=== PATIENT | female | born 1995 | race Two or more races ===

== ENCOUNTER → 2019-04-04 08:53 | Outpatient (CLI) | payer MEDICAID, SELFPAY ==
--- NOTE | ~2019-04-04 | US_ITS ---
EXAMINATION: US OB >= 14 weeks Fetus DATE: 04/04/2019 09:48 INDICATION: Assess anatomy during early second trimester of TECHNIQUE: Multiple obstetric sonographic images performed. FINDINGS: There is a single living fetus in variable presentation. The placenta is posterior with caudal anirudh n 4.0 cm from the internal cervical os. Amniotic fluid volume is subjectively normal. heart ra te of 147 beats per minute. The following anatomy was identified as normal: Ventricles, choroid plexus, falx and cava septum pellucidum Cerebellum and cisterna magna Nuchal fold Upper lip Spine The four-chamber and three-vessel trachea views of the heart appears normal. The left and right ventr icular outflow tract views are suboptimal likely due to stage of development slightly prior to the op timal imaging range of 18-20 week gestation. Diaphragm Stomach Kidneys Bladder 3 vessel cord and cord insertion Bilateral upper and lower extremities including hands and feet The following biometric data were obtained: BPD: 3.9 cm -> 17 weeks 6 days Head circumference: 14.4 cm -> 17 weeks 4 days Abdominal circumference: 11.9 cm -> 17 weeks 4 days Femur length: 2.4 cm -> 17 weeks 1 days These measurements are concordant. Head circumference to abdominal circumference ratio: 1.21 (normal range 1.08-1.28). Estimated weight: 195 g (+/-) 29 g. or 7 oz. (+/-) 1 oz. IMPRESSION: 1. Single living fetus with variable presentation with heart rate of 147 bpm. 2. Gestational age by ultrasound of 17 weeks 4 day(s) (+/-) 1 week 2 day(s) with ultrasound estimat ed date of delivery (CARIDAD) of 09/08/2019. Estimated weight is 22nd percentile by Hadlock criteria when 09/06/2019 is used as the CARIDAD. Please correlate with clinical information or earlier ultrasounds for most accurate CARIDAD. 3. Normal survey aside from suboptimal right and left ventricular outflow tract images likely d ue to imaging prior to the optimal gestational age range of 18-20 weeks. Reviewed, dictated and finalized at location A. [facility] IMPRESSION: 1. Single living fetus with variable presentation with heart rate of 147 bpm. 2. Gestational age by ultrasound of 17 weeks 4 day(s) (+/-) 1 week 2 day(s) w ith ultrasound estimated date of delivery (CARIDAD) of 09/08/2019. Estimated w eight is 22nd percentile by Hadlock criteria when 09/06/2019 is used as the CARIDAD. Please correlate with clinical information or earlier ultrasounds for most acc urate CARIDAD. 3. Normal survey aside from suboptimal right and left ventricular outflow tract images likely due to imaging prior to the optimal gestational age range of 18-20 weeks.
== END ==
PROVIDERS: PCP Obstetrics & Gynecology; Visit Provider Obstetrics & Gynecology
DX: Z34.02 Encounter for supervision of normal first pregnancy, second trimester (principal); Z3A.00 Weeks of gestation of pregnancy not specified
CPT/HCPCS: 99199; 76805

== ENCOUNTER 2019-05-11 09:48 | Outpatient (CLI) | payer OTHER, SELFPAY ==
--- NOTE | ~2019-05-11 | US_ITS ---
OB follow up 05/11/2019 10:32 Indication: Evaluate ventricular outflow tracts. Incomplete previous survey. Procedure: High-resolution Limited obstetrical ultrasound Comparison: No 04/04/2019 Findings: There is a single living intrauterine in transverse presentation. heart rat e is 148 BPM. Placenta is posterior without previa. Three-vessel cord as well as four-chamber heart, right ventricular and left ventricular outflow tracts are visualized and are within normal limits. Impression: 1: Single living intrauterine in transverse presentation. 2: Normal limited survey of three-vessel cord and the heart including ventricular outflow tracts. Reviewed, dictated and finalized at location A. TURNER Impression: 1: Single living intrauterine in transverse presentation. 2: Normal limited survey of three-vessel cord and the heart including ventricul ar outflow tracts.
== END 2019-05-11 09:49 | disposition home or self-care (01) ==
LOC: ANHIMG 09:56
PROVIDERS: Visit Provider Obstetrics & Gynecology
DX: Z36.2 Encounter for other antenatal screening follow-up (principal)
CPT/HCPCS: 76816

== ENCOUNTER 2019-09-11 01:55 | Inpatient (IN) | payer OTHER, SELFPAY ==
[2019-09-11] VITALS (80 sets, daily range): BP systolic 96–130; BP diastolic 31–106; PULSE 60–198; RESP 16; TEMP 36.5–36.9; O2SAT 99–100; BMI 26.9
[2019-09-11 03:39] LABS: Basophils Absolute Auto 0.1 K/mm3 (0.0-0.1); Basophils Percent Auto 0.4 % (0.2-1.2); Eosinophils Absolute Auto 0.1 K/mm3 (0-0.3); Eosinophils Percent Auto 0.5 % (0-4.4); Hematocrit 42.2 % (37.0-47.0); Hemoglobin 14.5 g/dL (12.0-15.0); Immature Granulocyte Absolute 0.13 K/mm3 (0.00-0.031); Immature Granulocyte Percent A 1.1 % (0-0.5); Lymphocytes Absolute Auto 2.86 K/mm3 (0.9-3.2); Lymphocytes Percent Auto 23.3 % (18.3-44.2); Mean Corpuscular HGB Conc 34.4 g/dl (32-36); Mean Corpuscular Volume 90.2 fl (80-100); Mean Platelet Volume 11.9 fl (7.4-10.4); Monocytes Absolute Auto 0.7 K/mm3 (0.1-0.6); Monocytes Percent Auto 5.9 % (2.6-8.5); Neutrophils Absolute Auto 8.4 K/mm3 (1.3-6.7); Neutrophils Percent Auto 68.8 % (45.5-73.1); Platelet Count Result 168 k/mm3 (150-375); Red Blood Count 4.68 M/mm3 (4.2-5.4); Red Cell Distribution Width 13.6 % (11.5-14.5); White Blood Count 12.3 K/mm3 (4.5-10.0)
[2019-09-11] MEDS: LACTATED RINGERS 1,000 ML 125 ML IV CONT (03:43)
--- NOTE | 2019-09-11 03:43 | LDADM ---
This patient, Andriy Ayala, was admitted to Labor/Delivery/Recovery 108 on 09/11/19 at 01:55. Plans for labor, pain management and were discussed with patient. Patient/family oriented to hospital policies and general routines including ID bracelet, bed and alarms, visiting hours, pain management, procedures, bathroom and other care routines, personal items, smoking policy, room service/diet and guest tray routines, security routines, and visiting hours. Patient/Family are encouraged to report perceived risks to care and to ask questions if they do not understand what they are told or what they should do. See OBIX for further documentation.
--- NOTE | 2019-09-11 04:19 | P.PNAN_ITS ---
Anes - Initial Pre Proc Eval Procedure: labor epidural Date/Time: 09/11/19 04:19 Surgeon: Eric Graves MD Pre Op Diagnosis: labor pain Pre Op Diagnosis: Contractions Patient Data Age: 24 Gender: F Height: 1.7 m Weight: 78 kg Last Vital Signs Pulse 80 09/11/19 04:17 BP 118/74 09/11/19 04:17 Pulse Ox 100 09/11/19 04:16 Allergies Allergy/AdvReac Type Severity Reaction Status Date / Time No Known Allergies Allergy Verified 08/07/19 13:25 Home Medications Medication Instructions Recorded Confirmed Type PNV cmb#95-ferrous fumarate-FA 1 tablet PO DAILY 08/07/19 08/07/19 History [] ergocalciferol (vitamin D2) 1,250 mcg PO WEEKLY 08/07/19 08/07/19 History [Vitamin D2] Laboratory Tests 09/11/19 09/11/19 03:30 03:30 WBC 12.3 K/mm3 H K/mm3 (4.5-10.0) RBC 4.68 M/mm3 M/mm3 (4.2-5.4) Hgb 14.5 g/dL g/dL (12.0-15.0) Hct 42.2 % % (37.0-47.0) MCV 90.2 fl fl (80-100) MCH 31.0 pg pg (26-34) MCHC 34.4 g/dl g/dl (32-36) RDW 13.6 % % (11.5-14.5) Plt Count 168 k/mm3 k/mm3 (150-375) MPV 11.9 fl H fl (7.4-10.4) Immature Gran % (Auto) 1.1 % H % (0-0.5) Neut % (Auto) 68.8 % % (45.5-73.1) Lymph % (Auto) 23.3 % % (18.3-44.2) [place] % (Auto) 5.9 % % (2.6-8.5) Eos % (Auto) 0.5 % % (0-4.4) Baso % (Auto) 0.4 % % (0.2-1.2) Lymph # (Auto) 2.86 K/mm3 K/mm3 (0.9-3.2) [place] # (Auto) 0.7 K/mm3 H K/mm3 (0.1-0.6) Eos # (Auto) 0.1 K/mm3 K/mm3 (0-0.3) Baso # (Auto) 0.1 K/mm3 K/mm3 (0.0-0.1) Abs Immat Gran (auto) 0.13 K/mm3 H K/mm3 (0.00-0.031) Absolute Neuts (auto) 8.4 K/mm3 H K/mm3 (1.3-6.7) Absolute Nucleated RBC 0.0 K/mm3 K/mm3 (0.0-0.012) Nucleated RBC % 0.0 % % (0.0-0.2) RPR Pending Patient hx anesthesia problems: none Family hx anesthesia problems: none [facility] Family History Family History Other No pertinent family history Social History Social History Substance use: never Gender identity (if verbalized by the patient): Female Spiritual care concerns: No Anes - Eval Final PreProcedure Day of Procedure 09/11/19 04:19 Patient weight: normal Heart: regular rate and rhythm Lungs: clear to auscultation and normal air movement Airway: Mallampati scale Neurological: alert and oriented ASA classification: I Anesthetic plan: proceed Anesthesia type and monitoring: regional epidural and standard monitoring Informed Consent: The patient's anesthetic plan and its attendant risks and benefits were discussed with the patient/family/POA. Questions were solicited and answers provided to the satisfaction of the patient/family/PO
--- NOTE | 2019-09-11 06:22 | WPDOBADMIT ---
Obstetrics - Admit Note Admission Note: Called to bedside patient is complete and +1 station. arom and vertex. record reviewed. No pertinent additions to the history and/or any subsequent changes in the physical findings that are not consistent with the expected course of the were found. Additions to the history and/or subsequent changes in the physical findings follow. None.
[2019-09-11] MEDS: OXYTOCIN 30 UNITS/NS 500 ML 30 UNITS/500 ML BAG 6 UNITS IV CONT (06:30)
--- NOTE | 2019-09-11 07:56 | PM.OBPRVD ---
OB - Delivery Note Procedure Delivery date: 09/11/19 Procedure: events: Labor Augmentation Intrapartal events: None Induction method: none Delivery augmentation: rupture of membranes Delivery monitor: external FHT and external uterine Route of delivery: Laceration description: Perineal - 2nd Degree Delivery repair: vicryl Specimen: No Estimated blood loss (mL): 500 Anesthesia type: Epidural Disposition: floor Baby Date of : 09/11/19 Time of : 07:27 Weeks of gestation at delivery: 39 Infant gender: Male Weight (pounds): 7 Weight (ounces): 3 presentation: vertex position: Left Occiput Anterior Placenta delivery description: Spontaneous cord vessel description: 3 Vessels score one minute: 8 score five minutes: 9
[2019-09-11 09:14] LABS: Rapid Plasma Reagin Non-Reactive (NonReactive)
[2019-09-11] MEDS: BENZOCAINE 20% AER SPR (*SP) 56 GM CAN 1 SPRAY TOPICAL (10:07)
[2019-09-11] MEDS: DIBUCAINE 1% OINTMENT 30 GM TUBE 1 APPLIC TOPICAL (10:08)
[2019-09-11] MEDS: WITCH HAZEL 40 PADS 1 PAD TOPICAL (10:08)
--- NOTE | 2019-09-11 12:15 | PC.NURSE ---
Mother called out for assist. Consulted with patient, mother reports eagerly fed at first feeding. Reviewed infant feeding cues, frequencies, duration of feedings, feeding elimination flow sheet, and signs of adequate intake. Demonstrated stimulation techniques to wake for feeding. Assisted with to breast. Reviewed positioning/alignment in cross cradle, holding breast in U hold and guided asymmetrical latch on. Discussed rational for each. was able to latch correctly with first attempt. nursed eagerly, with steady draws and frequent swallowing noted. Reviewed signs of a correct latch, effective nursing and suck swallow ratio. Infant was able to maintain latch without discomfort to mother. Nipple care reviewed. Suggested to stimulate during feeding to keep infant awake and nursing effectively for increased intake and assist with maintaining deep latch. Demonstrated how to adjust latch more deeply while feeding. Instructed mother to call out for RN assistance if she is unable to latch infant for feeding or she has discomfort with nursing. Instructed feeding should be initiated three hours from start of last feeding or if feeding cues are noted before. Mother voiced understanding of information shared.
[2019-09-11] MEDS: IBUPROFEN 600 MG TABLET PO ×2 (12:38→19:35)
[2019-09-11] MEDS: HYDROCORTISONE/PRAMOXINE 2.5% 30 GM CREAM 1 APPLIC RECTAL (12:39)
[2019-09-11] MEDS: LANOLIN (LANSINOH) 7.5 GM CREAM 1 APPLIC TOPICAL (12:40)
--- NOTE | 2019-09-11 14:20 | PC.NURSE ---
Mother called out for assist. Mother wanted to have observation and attempt latch independently. Reviewed positioning/alignment in cross cradle, holding breast in U hold and guided asymmetrical latch on. Mother was able to hold infant in cross cradle holding breast and latching infant correctly with minimal assist. was able to latch correctly with first attempt. nursed eagerly, with steady draws and frequent swallowing noted. Reviewed signs of a correct latch, effective nursing and suck swallow ratio. Infant was able to maintain latch without discomfort to mother. Nipple care reviewed. Suggested to stimulate during feeding to keep infant awake and nursing effectively for increased intake and assist with maintaining deep latch. Demonstrated how to adjust latch more deeply while feeding. Instructed mother to call out for RN assistance if she is unable to latch infant for feeding or she has discomfort with nursing. Instructed feeding should be initiated three hours from start of last feeding or if feeding cues are noted before. Mother voiced understanding of information shared.
[2019-09-11] MEDS: DOCUSATE SODIUM 100 MG CAPSULE PO (16:03)
[2019-09-11] MEDS: ACETAMINOPHEN 325 MG TABLET 650 MG PO (16:05)
[2019-09-12 04:08] LABS: Hematocrit 32.2 % (37.0-47.0); Hemoglobin 10.8 g/dL (12.0-15.0)
--- NOTE | 2019-09-12 07:45 | PM.OBPNVD ---
OB - PN: Subj Subjective Date/time seen: 09/12/19 07:45 Patient comments: no complaints and pain well controlled baby status: doing well OB - PN: Obj Data Labs CBC & Chem 7: 09/12/19 03:34 Labs: Laboratory Results - last 24 hr 09/11/19 09/12/19 03:30 03:34 Hgb 10.8 L D Hct 32.2 L RPR Non-reactive OB - PN A/P Plan day: 1 Plan: routine care Time Spent With Patient Time: Total time spent is greater than 50% in coordination of care (as documented) at patient's floor/unit and/or counseling patient: Exam : Bimanual exam- vagina & uterus: other (Uterus firm, nt @U)
--- NOTE | 2019-09-12 07:55 | WPDANLDPN2 ---
Anes-Prog Note L&D Date/Time: 09/12/19 07:55 Comfortable throughout: labor and delivery Neuraxial method: epidural Epidural/Spinal procedure site: clean & non-tender Neuro status: Neuro function grossly intact. Cardiovascular status: normal Respiratory status: normal Airway patency: baseline Mental status: baseline Post-Op hydration status: normal Vital Signs: Last Vital Signs Temp 36.5 C 09/11/19 19:15 Pulse 71 09/11/19 19:15 Resp 16 09/11/19 19:15 BP 111/67 09/11/19 19:15 Pulse Ox 99 09/11/19 19:15 I/O: Intake & Output 09/11/19 09/11/19 09/12/19 15:59 23:59 07:59 Intake Total 1100 Balance 1100 Post-procedural complaints: none Patient feedback: Patient satisfied with anesthetic care.
[2019-09-12 08:40] VITALS: BP 96/55; PULSE 80; RESP 16; TEMP 36.5; O2SAT 99
[2019-09-12] MEDS: MULTIVIT/MIN/PREN/FOL AC/IRON TABLET 1 TAB PO (10:23)
[2019-09-12] MEDS: DOCUSATE SODIUM 100 MG CAPSULE PO (10:23)
[2019-09-12] MEDS: WITCH HAZEL 40 PADS 1 PAD TOPICAL (10:24)
--- NOTE | 2019-09-12 12:00 | PC.NURSE ---
Mother called out for assist with waking for feeding. Mother is concerned it is now 4 hours from last feeding. Reviewed infant feeding sheet: infant cluster fed for several hours during the night. Reviewed this is normal after a cluster feed, and now time to stimulate to wake to feed. Demonstrated stimulation techniques to wake for feeding. Mother has slight bruising to center of nipple, from possible shallow latch. Discussed a deeper latch and how this will assist with increased intake and assisting to maintain a deep latch for her comfort . Assisted with infant to breast. Reviewed positioning/alignment in cross cradle, holding breast in U hold and guided asymmetrical latch on. Waiting for wide mouth before attempting latch. was able to latch correctly. nursed eagerly, with steady draws and frequent swallowing noted. Reviewed signs of a correct latch, effective nursing and suck swallow ratio. Infant was able to maintain latch without discomfort to mother. Nipple care reviewed. Instructed mother to call out for RN assistance if she is unable to latch infant for feeding or she has discomfort with nursing. Instructed feeding should be initiated three hours from start of last feeding or if feeding cues are noted before. Mother voiced understanding of information shared. Consulted with patient, mother reports fed well during the night.
[2019-09-12] MEDS: HYDROCORTISONE/PRAMOXINE 2.5% 30 GM CREAM 1 APPLIC RECTAL (17:37)
[2019-09-12 19:30] VITALS: BP 103/66; PULSE 81; RESP 16; TEMP 36.9; O2SAT 99
[2019-09-13 08:40] VITALS: BP 100/61; PULSE 78; RESP 18; TEMP 37; O2SAT 99
[2019-09-13] MEDS: MULTIVIT/MIN/PREN/FOL AC/IRON TABLET 1 TAB PO (09:33)
--- NOTE | 2019-09-13 10:03 | PM.OBPNVD ---
OB - PN: Subj Subjective Date/time seen: 09/13/19 10:03 Doing well no complaints at this time desires home OB - PN: Obj Data Labs CBC & Chem 7: 09/12/19 03:34 OB - PN A/P Assessment and Plan (1) (normal spontaneous vaginal delivery): Code(s): O80 - Encounter for full-term uncomplicated delivery Status: Acute Assessment and Plan: d/c home and follow up in 6 weeks. Time Spent With Patient Time: Total time spent is greater than 50% in coordination of care (as documented) at patient's floor/unit and/or counseling patient: Exam GI: GI Palp: Yes Firmness to palpation present (GI) (firm fundus at umbilicus)
[2019-09-15 11:02] VITALS: BP 108/70; PULSE 80; RESP 20; TEMP 36.3; O2SAT 100
--- NOTE | 2019-09-29 12:52 | PM.OBDSVD ---
DS: Admitting Diagnosis Admitting Diagnosis Admitting Diagnosis: Encounter for supervision of normal , unspecified, third trimester DS: Discharge Diagnosis Discharge Diagnosis (1) (normal spontaneous vaginal delivery): Code(s): O80 - Encounter for full-term uncomplicated delivery Status: Acute OB - DS: Summary OB Procedures : None OB Procedures Intrapartum: Spontaneous Vag Delivery OB Procedures: : None Peripartum Data Delivery Method: Natural Vaginal Laceration description: Perineal - 2nd Degree complications: none Time Spent with Patient Time attestation: Total time spent providing and/or coordinating discharge services: Discharge Plan Discharge Attending physician on discharge: Eric Graves Discharging Clinician: Eric Graves Patient Disposition: Home, Self-Care Activity: may shower and pelvic rest Diet: regular Discharge Instructions: Education: Mom and Baby Guide Given to: Mother Follow-Up: Call your delivering provider's office for an appointment to be seen in: 6 Weeks Mom [facility] baby [facility]. Appointment Date/Time: September 15, 2019 at 11:00 am What to expect at your follow-up visit: Physical Assessment Call [phone] if you are unable to keep your appointment time. BREAST CARE: 1. Wear a snug supportive bra. 2. For engorgement discomfort: Breast Feeding: A. Apply warm moist washcloths B. Express milk as needed to relieve engorgement C. Wear loose clothing 3. For sore nipples: A. Identify correct latch-on B. Apply warm moist washcloths before and after nursing C. Air dry nipples after nursing D. May apply Lansinoh cream to nipples PERINEAL CARE: 1. Until bleeding stops, use your jaida bottle after urinating 2. Change your pad frequently throughout the day 3. You may take sitz baths several times a day (fill your bathtub with warm water and soak for 20 minutes.) Do NOT bathe in the water 4. No tub baths until seen by your physician - You may shower ACTIVITY: 1. Rest as much as possible. 2. Do not exercise or lift anything heavier than your baby (such as laundry or other children.) 3. Avoid stairs or driving as much as possible. 4. Do not put anything into the vagina. No douching, tampons, or sexual activity until seen by physician. NOTIFY PHYSICIAN IF YOU HAVE ANY QUESTIONS OR IF ANY OF THE FOLLOWING SYMPTOMS OCCUR: 1. If your stitches become red, swollen, or more painful than what you have experienced in the hospital. 2. If your vaginal bleeding becomes foul smelling. 3. If your vaginal bleeding becomes more heavy than a period or if your bleeding changes from pink to bright red. However, you may pass an occasional walnut-sized clot once or twice for the first week . 4. If you experience a sharp, shooting pain in you calves. 5. If you discover a hard, reddened area on your breast or if you experience flu-like symptoms. DIET: 1. Eat regular, well-balanced meals. 2. Drink plenty of fluids daily. If , drink to thirst. Stand Alone Forms: General Discharge Information Follow-up/Referrals: Eric Graves MD [Physician] - Discharge Medications: Continued ergocalciferol (vitamin D2) [Vitamin D2] 1,250 mcg (50,000 unit) Capsule 1,250 mcg PO WEEKLY RF: 0 PNV cmb#95-ferrous fumarate-FA [] 28 mg iron- 800 mcg Tablet 1 tablet PO DAILY RF: 0 Date of admission: 09/11/19 01:55 Primary Care Provider: PHYSICIAN,MEDICARE SPECIALIST Admitting Provider: Eric Graves Discharge Date/Time: 09/13/19 12:25 Attending physician on admission: Eric Graves
== END 2019-09-13 12:25 | disposition home or self-care (01) | DRG 560 ==
LOC: ANHLDR 04:15 → ANHOB2 11:46
PROVIDERS: Admitting Provider Obstetrics & Gynecology; Visit Provider Obstetrics & Gynecology
DX: O70.1 Second degree perineal laceration during delivery (principal); Z37.0 Single live birth; Z3A.39 39 weeks gestation of pregnancy
CPT/HCPCS: 36415; 85014; 85018; 85025; 86592; 86850; 86900; 86901; A9270; J2590; J2795; J7120

== ENCOUNTER 2021-10-24 15:29 | Outpatient (CLI) | payer OTHER, SELFPAY ==
--- NOTE | ~2021-10-24 | US_ITS ---
EXAMINATION: US OB /maternal detail DATE: 10/24/2021 16:44 INDICATION: Uncertain dating of TECHNIQUE: Multiple obstetric sonographic images performed. FINDINGS: There is a single living fetus in stable presentation. The placenta is posterior fundal and not low- lying with caudal margin 7.9 cm from the internal cervical os. Cervical length measures 5.3 cm. Moder ate fluid volume is subjectively normal. heart rate of 148 beats per minute. The following anatomy was identified as normal: Ventricles, choroid plexus, falx and cava septum pellucidum Cerebellum and cisterna magna Nuchal fold Upper lip Spine Diaphragm Stomach Kidneys Bladder 3 vessel cord and cord insertion Bilateral upper and lower extremities including hands and feet There is a small pericardial effusion. Although the cardiac views are suboptimal without the standard left and right outflow tract views, analysis of the provided cine images of the outflow tracts sugge st normal anatomy. The following biometric data were obtained: BPD: 5.7 cm -> 23 weeks 2 days Head circumference: 20.5 cm -> 22 weeks 5 days Abdominal circumference: 18.5 cm -> 23 weeks 3 days Femur length: 3.8 cm -> 22 weeks 2 days These measurements are concordant. Head circumference to abdominal circumference ratio: 1.11 (normal range 1.05-1.21). Estimated weight: 544 g (+/-) 82 g. or 1 lbs. 3 oz. (+/-) 3 oz. IMPRESSION: 1. Single living fetus with variable presentation with heart rate of 148 bpm. 2. Gestational age by ultrasound of 23 weeks 0 day(s) (+/-) 1 week 4 day(s) with ultrasound estimat ed date of delivery (CARIDAD) of 02/20/2022. Estimated weight is 52nd percentile by Hadlock criteria when 02/22/2022 is used as the CARIDAD. Please correlate with clinical information or earlier ultrasounds for most accurate CARIDAD. 3. Small pericardial effusion. Cardiac anatomy appears normal although evaluation is somewhat limited by nonstandard imaging views. Otherwise normal survey. Reviewed, dictated and finalized at location A. IMPRESSION: 1. Single living fetus with variable presentation with heart rate of 148 bpm. 2. Gestational age by ultrasound of 23 weeks 0 day(s) (+/-) 1 week 4 day(s) w ith ultrasound estimated date of delivery (CARIDAD) of 02/20/2022. Estimated w eight is 52nd percentile by Hadlock criteria when 02/22/2022 is used as the CARIDAD. Please correlate with clinical information or earlier ultrasounds for most acc urate CARIDAD. 3. Small pericardial effusion. Cardiac anatomy appears normal although evaluati on is somewhat limited by nonstandard imaging views. Otherwise normal bernard vey.
== END 2021-10-24 15:30 | disposition home or self-care (01) ==
PROVIDERS: PCP Obstetrics & Gynecology Gynecology; Visit Provider Obstetrics & Gynecology Gynecology
DX: Z36.87 Encounter for antenatal screening for uncertain dates (principal); Z3A.23 23 weeks gestation of pregnancy; I31.3 Pericardial effusion (noninflammatory)
CPT/HCPCS: 76805

== ENCOUNTER 2022-02-16 13:49 | Inpatient (IN) | payer OTHER, SELFPAY ==
[2022-02-16] VITALS (60 sets, daily range): BP systolic 44–119; BP diastolic 18–76; PULSE 73–161; RESP 18; TEMP 36.6–36.7; O2SAT 98–100; BMI 26.6
[2022-02-16] MEDS: LACTATED RINGERS 1,000 ML 125 ML IV CONT ×2 (14:20→15:00)
[2022-02-16 14:28] LABS: Basophils Absolute Auto 0.1 K/mm3 (0.0-0.1); Basophils Percent Auto 0.4 % (0.2-1.2); Eosinophils Percent Auto 0.2 % (0-4.4); Immature Granulocyte Absolute 0.07 K/mm3 (0.00-0.031); Immature Granulocyte Percent A 0.6 % (0-0.5); Lymphocytes Absolute Auto 2.21 K/mm3 (0.9-3.2); Lymphocytes Percent Auto 19.9 % (18.3-44.2); Mean Corpuscular HGB Conc 34.1 g/dl (32-36); Mean Corpuscular Hemoglobin 30.7 pg (26-34); Mean Corpuscular Volume 89.9 fl (80-100); Mean Platelet Volume 10.8 fl (7.4-10.4); Monocytes Absolute Auto 0.5 K/mm3 (0.1-0.6); Monocytes Percent Auto 4.6 % (2.6-8.5); Neutrophils Absolute Auto 8.3 K/mm3 (1.3-6.7); Neutrophils Percent Auto 74.3 % (45.5-73.1); Platelet Count Result 159 k/mm3 (150-375); Red Blood Count 4.56 M/mm3 (4.2-5.4); Red Cell Distribution Width 13.6 % (11.5-14.5); White Blood Count 11.1 K/mm3 (4.5-10.0)
--- NOTE | 2022-02-16 14:41 | P.PNAN_ITS ---
Anes - Eval Pre Procedure Procedure: labor epidural Date/Time: 02/16/22 14:41 Preop Diagnosis: labor pain Pre Op Diagnosis: Labor Patient Data Age: 26 Gender: F Height: Weight: Last Vital Signs Pulse 93 02/16/22 14:30 BP 113/76 02/16/22 14:30 Allergies Allergy/AdvReac Type Severity Reaction Status Date / Time No Known Allergies Allergy Verified 03/26/21 13:44 Home Medications Medication Instructions Recorded Confirmed Type ergocalciferol (vitamin D2) 1,250 1,250 mcg PO WEEKLY 08/07/19 01/23/22 History mcg (50,000 unit) capsule (Vitamin D2) vit no.95-ferrous 1 tablet PO DAILY 08/07/19 01/23/22 History fumarate 28 mg-folic acid 800 mcg tablet () Laboratory Tests 02/16/22 02/16/22 14:20 14:20 WBC 11.1 K/mm3 H K/mm3 (4.5-10.0) RBC 4.56 M/mm3 M/mm3 (4.2-5.4) Hgb 14.0 g/dL D g/dL (12.0-15.0) Hct 41.0 % % (37.0-47.0) MCV 89.9 fl fl (80-100) MCH 30.7 pg pg (26-34) MCHC 34.1 g/dl g/dl (32-36) RDW 13.6 % % (11.5-14.5) Plt Count 159 k/mm3 k/mm3 (150-375) MPV 10.8 fl H fl (7.4-10.4) Immature Gran % (Auto) 0.6 % H % (0-0.5) Neut % (Auto) 74.3 % H % (45.5-73.1) Lymph % (Auto) 19.9 % % (18.3-44.2) [place] % (Auto) 4.6 % % (2.6-8.5) Eos % (Auto) 0.2 % % (0-4.4) Baso % (Auto) 0.4 % % (0.2-1.2) Lymph # (Auto) 2.21 K/mm3 K/mm3 (0.9-3.2) [place] # (Auto) 0.5 K/mm3 K/mm3 (0.1-0.6) Eos # (Auto) 0.0 K/mm3 K/mm3 (0-0.3) Baso # (Auto) 0.1 K/mm3 K/mm3 (0.0-0.1) Abs Immat Gran (auto) 0.07 K/mm3 H K/mm3 (0.00-0.031) Absolute Neuts (auto) 8.3 K/mm3 H K/mm3 (1.3-6.7) Absolute Nucleated RBC 0.0 K/mm3 K/mm3 (0.0-0.012) Nucleated RBC % 0.0 % % (0.0-0.2) RPR Pending Patient hx anesthesia problems: none Family hx anesthesia problems: none Results Review: All pre-operative results and documents have been reviewed as part of the pre- operative evaluation. [facility] Past Medical History Medical History (normal spontaneous vaginal delivery) Family History Family History Other No pertinent family history Patient denies significant medical history Social History Social History Smoking status: Never smoker Substance use: never Gender identity (if verbalized by the patient): Female Spiritual care concerns: No Exam Day of Procedure 02/16/22 14:41
--- NOTE | 2022-02-16 14:42 | LDADM ---
This patient, Andriy Ayala, was admitted to Labor/Delivery/Recovery 108 on 02/16/22 at 13:49. Plans for labor, pain management and were discussed with patient. Patient/family oriented to hospital policies and general routines including ID bracelet, bed and alarms, visiting hours, pain management, procedures, bathroom and other care routines, personal items, smoking policy, room service/diet and guest tray routines, infant security routines, and visiting hours. Patient/Family are encouraged to report perceived risks to care and to ask questions if they do not understand what they are told or what they should do. See OBIX for further documentation.
[2022-02-16] MEDS: OXYTOCIN 30 UNITS/NS 500 ML 30 UNITS/500 ML BAG 999 UNITS IV CONT (16:03)
--- NOTE | 2022-02-16 16:14 | P.PCNOB_ITS ---
OB - Delivery Note Procedure Delivery date: 02/16/22 Procedure: Induction method: None Delivery monitor: External FHT and External Uterine Route of delivery: Laceration Description: Perineal - 1st Degree Delivery repair: vicryl (3-0) Specimen: Yes (placenta) Quantitative Blood Loss (ml): 100 Anesthesia type: Epidural Disposition: Floor [place] Baby Date of : 02/16/22 Weeks of gestation at delivery: 39 Infant gender: Male Weight (pounds): 7 Weight (ounces): 11 presentation: vertex position: Left Occiput Anterior Placenta delivery description: Spontaneous Cord Vessel Description: 3 Vessels and Nuchal Cord score one minute: 9 score five minutes: 9
--- NOTE | 2022-02-16 16:17 | WPDOBADMIT ---
Obstetrics - Admit Note Admission Note: record reviewed. No pertinent additions to the history and/or any subsequent changes in the physical findings that are not consistent with the expected course of the were found. Additions to the history and/or subsequent changes in the physical findings follow. Here in labor. Cervix 8 cm on admit. Now c/+2. AROM with meconium noted. Peds notified and came for delivery.
--- NOTE | 2022-02-16 16:18 | PM.OBDSVD ---
DS: Admitting Diagnosis Discharge Date 02/17/22 Admitting Diagnosis IUP 39 wks Labor DS: Discharge Diagnosis Discharge Diagnosis (1) (normal spontaneous vaginal delivery): Code(s): O80 - Encounter for full-term uncomplicated delivery Status: Acute OB - DS: Summary OB Procedures : Ultrasound OB Procedures Intrapartum: Spontaneous Vag Delivery OB Procedures: : None Peripartum Data Infant Delivery Method: Natural Vaginal Laceration Description: Perineal - 1st Degree complications: none Status at Discharge Functional status at discharge: independent ambulation Overall status at discharge: patient is progressing back to baseline Time Spent with Patient Time attestation: Total time spent providing and/or coordinating discharge services: DS: Data Data Completed and Pending Labs on day of discharge: Labs from last 24 hours 02/16/22 02/16/22 02/16/22 14:20 14:20 14:20 WBC 11.1 H RBC 4.56 Hgb 14.0 D Hct 41.0 MCV 89.9 MCH 30.7 MCHC 34.1 RDW 13.6 Plt Count 159 MPV 10.8 H Immature Gran % (Auto) 0.6 H Neut % (Auto) 74.3 H Lymph % (Auto) 19.9 [place] % (Auto) 4.6 Eos % (Auto) 0.2 Baso % (Auto) 0.4 Lymph # (Auto) 2.21 [place] # (Auto) 0.5 Eos # (Auto) 0.0 Baso # (Auto) 0.1 Abs Immat Gran (auto) 0.07 H Absolute Neuts (auto) 8.3 H Absolute Nucleated RBC 0.0 Nucleated RBC % 0.0 RPR Pending Blood Type A Positive Antibody Screen Negative Discharge Plan Discharge Attending physician on discharge: Rosy Hammond Discharging Clinician: oRsy Hammond Anticipated Discharge Date/Time: 02/18/22 16:19 Patient Disposition: Home, Self-Care Activity: may shower and pelvic rest Diet: regular Patient Instructions: Antibiotic Form Stand Alone Forms: General Discharge Information Follow-up/Referrals: Rosy Hammond MD [Physician] - 6 Weeks Discharge Medications: New norethindrone (contraceptive) 0.35 mg tablet 0.35 mg PO DAILY Qty: 84 3RF Rx Instructions: start in 3 weeks Continued ergocalciferol (vitamin D2) [Vitamin D2] 1,250 mcg (50,000 unit) Capsule 1,250 mcg PO WEEKLY PNV cmb#95-ferrous fumarate-FA [] 28 mg iron- 800 mcg Tablet 1 tablet PO DAILY Date of admission: 02/16/22 13:49 Primary Care Provider: PHYSICIAN,UNDERWRITING SPECIALIST Admitting Provider: Rosy Hammond Attending physician on admission: Rosy Hammond Condition: Stable
[2022-02-17] VITALS: BP 95/56; PULSE 76; RESP 18; TEMP 36.4; O2SAT 98
[2022-02-17 04:15] VITALS: BP 100/61; PULSE 58; RESP 18; TEMP 36.8; O2SAT 100
[2022-02-17 04:56] LABS: Hematocrit 37.6 % (37.0-47.0); Hemoglobin 12.8 g/dL (12.0-15.0)
--- NOTE | 2022-02-17 07:33 | PM.OBPNVD ---
OB - PN: Subj Subjective Date/time seen: 02/17/22 07:33 Patient comments: no complaints and pain well controlled baby status: doing well OB - PN: Obj Data Labs CBC & Chem 7: 02/17/22 03:59 Labs: Laboratory Results - last 24 hr 02/16/22 02/16/22 02/17/22 14:20 14:20 03:59 WBC 11.1 H RBC 4.56 Hgb 14.0 D 12.8 Hct 41.0 37.6 MCV 89.9 MCH 30.7 MCHC 34.1 RDW 13.6 Plt Count 159 MPV 10.8 H Immature Gran % (Auto) 0.6 H Neut % (Auto) 74.3 H Lymph % (Auto) 19.9 [place] % (Auto) 4.6 Eos % (Auto) 0.2 Baso % (Auto) 0.4 Lymph # (Auto) 2.21 [place] # (Auto) 0.5 Eos # (Auto) 0.0 Baso # (Auto) 0.1 Abs Immat Gran (auto) 0.07 H Absolute Neuts (auto) 8.3 H Absolute Nucleated RBC 0.0 Nucleated RBC % 0.0 Blood Type A Positive Antibody Screen Negative OB - PN A/P Plan day: 1 Plan: routine care, discharge home, follow up 6 weeks and other (plans oc's) Time Spent With Patient Time: Total time spent is greater than 50% in coordination of care (as documented) at patient's floor/unit and/or counseling patient: Exam : Bimanual exam- vagina & uterus: other (Uterus firm, nt @U)
[2022-02-17 08:15] VITALS: BP 102/62; PULSE 74; RESP 16; TEMP 37.4; O2SAT 100
[2022-02-17] MEDS: DOCUSATE SODIUM 100 MG CAPSULE PO (08:27)
[2022-02-17] MEDS: BENZOCAINE 20% AER SPR (*SP) 56 GM CAN 1 SPRAY TOPICAL (08:28)
[2022-02-17] MEDS: WITCH HAZEL 40 PADS 1 PAD TOPICAL (08:28)
[2022-02-17] MEDS: MULTIVIT/MIN/PREN/FOL AC/IRON TABLET 1 TAB PO (08:28)
[2022-02-17] MEDS: LANOLIN (LANSINOH) 7.5 GM CREAM 1 APPLIC TOPICAL (08:30)
--- NOTE | 2022-02-17 08:50 | WPDANLDPN2 ---
Anes-Prog Note L&D Date/Time: 02/17/22 08:50 Neuro status: Neuro function grossly intact. Vital Signs: Last Vital Signs Temp 36.8 C 02/17/22 04:15 Pulse 58 L 02/17/22 04:15 Resp 18 02/17/22 04:15 BP 100/61 02/17/22 04:15 Pulse Ox 100 02/17/22 04:15 O2 Del Method Room Air 02/16/22 19:57 Pain score (VAS): 0 Patient feedback: Patient satisfied with anesthetic care.
--- NOTE | 2022-02-17 11:01 | PC.NURSE ---
[id number] Introductions were made, then consulted with patient to assess needs related to . Resources offered for inpatient assistance and mother is receptive. Mother is holding states she tried to breastfeed but isn't waking to breastfeed. RN demonstrates unwrapping, undressing, changing infants position, how to massage touch to stimulate wakefulness, then placed infant skin to skin upright on mother's chest. A large stool diaper is visualized. RN changes diaper and reviews circumcision care as it is demonstrated. Infant placed S2S. Mother works well with her with encouragement and education. Encouraged understanding of the benefits of skin to skin (unwrapping and placing vertically on her chest), responsive feeding and how to watch for early feeding signs, frequency of feeding on demand about every 8-12 times in 24 hours (every 2-3 hours), milk production, duration of feeding, signs of adequate intake/output and how to record on the feeding sheet. Reviewed positioning and ear, shoulder, hip alignment, supporting the breast, asymmetrical latch (off-center), and leading with the chin with a big open side gape. latched optimally to the right breast in cross cradle position. Education given to mother of how to visualize suck/swallow ratios and drinking at the breast. Infant was able to maintain latch without discomfort to mother. Nipple care reviewed with optimal latch and good positioning. Resources used to facilitate learning were used with the mom and baby guide. Mother voiced understanding of responsive feedings, stimulating with skin to skin, massage touch, talking to infant to encourage if it has been 2 -3 hours since the start of the last , to call if does not latch or there is discomfort with . Reported to the primary RN.
[2022-02-17 12:02] VITALS: BP 105/68; PULSE 72; RESP 18; TEMP 37.2; O2SAT 99
[2022-02-17 13:47] LABS: Rapid Plasma Reagin Non-Reactive (NonReactive)
--- NOTE | 2022-02-17 15:45 | PC.NURSE ---
Patient viewed the discharge video Mother & Baby Care, The First Two Weeks . Patient was given the opportunity and encouraged to ask questions. Patient verbalized understanding of information shared and has been given the mother/baby guide for home reference.
[2022-02-17 16:36] VITALS: BP 110/65; PULSE 79; RESP 18; TEMP 36.5; O2SAT 100
[2022-02-18 11:11] VITALS: BP 105/69; PULSE 84; RESP 20; TEMP 36.9; O2SAT 98
== END 2022-02-17 17:46 | disposition home or self-care (01) | DRG 560 ==
LOC: ANHLDR 16:19 → ANHOB2 19:46
PROVIDERS: Admitting Provider Obstetrics & Gynecology Gynecology; Visit Provider Obstetrics & Gynecology Gynecology
DX: O77.0 Labor and delivery complicated by meconium in amniotic fluid (principal); O69.81X0 Labor and delivery complicated by cord around neck, without compression, not applicable or unspecified; Z37.0 Single live birth; Z3A.39 39 weeks gestation of pregnancy; O70.0 First degree perineal laceration during delivery
CPT/HCPCS: 36415; 85014; 85018; 85025; 86592; 86850; 86900; 86901; 88307; A9270; J2590; J2795; J7120

== ENCOUNTER 2025-02-24 09:49 | Outpatient (CLI) | payer OTHER, SELFPAY ==
--- NOTE | ~2025-02-24 | US_ITS ---
EXAM/PROCEDURE: US OB follow up HISTORY: Pelvic pain COMPARISON: None available. TECHNIQUE: Directed exam for evaluation of placenta positioning and viability FINDINGS: A single viable intrauterine gestation is present with heart rate of 157 bpm Presentation: Vertex Placenta: Anterior with placenta covering the internal os as seen on images 3 through 9. The internal os appears completely cover. The cervix appears adequate in length and closed. EGA by dates and ultrasound 17 weeks 1 day and 17 weeks 3 days EDC by dates and ultrasound August 03 and August 01, 2025 Biometric ratios are within normal limits. Both ovaries appear within normal limits. No free fluid seen. IMPRESSION: Directed examination demonstrating single viable intrauterine gestation with concordant dates and what appears to be complete placenta previa. Reviewed, dictated and finalized at location A. OMINIUM PROPERTY MANAGER IMPRESSION: Directed examination demonstrating single viable intrauterine gesta tion with concordant dates and what appears to be complete placenta previa.
== END 2025-02-24 09:50 | disposition home or self-care (01) ==
PROVIDERS: PCP Obstetrics & Gynecology Gynecology
DX: O44.01 Complete placenta previa NOS or without hemorrhage, first trimester (principal); Z3A.00 Weeks of gestation of pregnancy not specified
CPT/HCPCS: 76816

== ENCOUNTER 2025-03-04 11:26 | Emergency (ER) | payer OTHER, SELFPAY ==
--- OUTSIDE RECORDS SUMMARY | 2025-03-04 11:28 | XMS_ITS ---
Author Organization [facility] Source Produ ction (ClinicalSummary Clone) Address Unknown Care Team Providers Care Stapler Hand Name Role Phone Unavailable Primary Care Physician Unavailab le Results * [UNITY] ANEUPLOIDY NIPT Performed by: [email or web address] Component Value Range Date Fraction 12.6% 01/26/2025 02 :03 am UT 22q11.2 Microdeletion LOW RISK <1 in 10,000 01/26/2025 02:03 am [place] Sex Chromosome Aneuploidy NOT DETECTED 02:03 am UT Monosomy X LOW RISK <1 in 10,000 2024 02:03 am UT Trisomy 13 LOW RISK <1 in 10,000 2024 02:03 am UT Trisomy 18 LOW RISK <1 in 10,000 2024 02:03 am UTC Trisomy 21 LOW RISK <1 in 10,000 2024 02:03 am UT Sex FEMALE 01/26/2025 02:0 3 am UT Gestation KRAMER 01/27/20 02:03 am [facility] For detailed report, see PDF See PDF 01/26/2025 02:03 am UTC 01/26/2025 02:0 3 am [facility] Social History Observation Value Start Date End Date
--- OUTSIDE RECORDS SUMMARY | 2025-03-04 11:28 | XMS_ITS | Clinical Summary ---
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 Gender Identity Not on file Sexual Orientation Not on file Plan of Treatment Health Maintenance Due Date Last Done Comments Hepatitis C Virus (HCV) Screening 1994 TdaP Immunization 1994 Hepatitis B Immunization (1 of 3 - 19+ 3-dose series) 2013 Pap Smear 2015 Human Papillomavirus (HPV) Immunization (1 - 3-dose SCDM series) 2021 Cervical Cancer Screening (CCS) 2024 HPV/Cotest 2024 Influenza Immunization (#1) 2024 SARS-COV-2 Immunization ( season) 2024 Respiratory Syncytial Virus (RSV) Immunization (Adult) (1 - 1-dose 75+ series) 2069 Meningococcal Immunization (ACWY) Aged Out No longer eligible based on patient's age to complete this topic Pneumococcal Immunization Combined Aged Out No longer eligible based on patient's age to complete this topic Rotavirus Immunization Aged Out No lo nger eligible based on patient's age to complete this topic
--- OUTSIDE RECORDS SUMMARY | 2025-03-04 11:28 | XMS_ITS ---
Author Organization [facility] Source Produ ction (ClinicalSummary Clone) Address Unknown Care Team Providers Care Sales Operations Assistant Name Role Phone Unavailable Primary Care Physician Unavailab le Results * [UNITY] CARRIER SCREEN Performed by: [employer] Component Value Range Date Sickle Cell Disease/Beta-Thalassemia/Hemo globinopathies carrier screen NEGATIVE 01/29/2025 09:23 am [facility] Alpha-Thalassemia carrier screen NEGATIVE 01/29/2025 09:23 am [facility] Cystic Fibrosis carrier screen NEGATIVE 01/29/2025 09:23 am [facility] Spinal Muscular Atrophy carrier screen NEGATIVE 2 SMN1 copies, SNP not present 01/29/2025 09:23 am [facility] For detailed report, see PDF See PDF 01/29/2025 09:23 am [facility] 01/29/2025 09:2 3 am [facility] Social History Observation Value Start Date End Date
--- OUTSIDE RECORDS SUMMARY | 2025-03-04 11:28 | XMS_ITS | Clinical Summary ---
Author Organization [facility] Address [address] [place] [address] Phone Care Team Providers Care Exterminator Helper Name Role Phone Unavailable Primary Care Provider Unavailabl e Social History Tobacco Use Types Packs/Day Years Used Date Smoking Tobacco: Never Assessed Comments Unknown Sex and Gender Information Value Date Recorded Sex Assigned at Not on file Legal Sex Female 2:19 PM CDT Gender Identity Not on file Sexual Orientation Not on file Plan of Treatment Health Maintenance Due Date Last Done Comments DTAP/TDAP/TD VACCINES (1 - Tdap) 2013 HEPATITIS B VACCINES (1 of 3 - 19+ 3-dose series) 10/2013 HPV/Cotest (21-29) 2015 CERVICAL CANCER SCREENING 2024 HPV/Cotest (30-65) 2024 PAP SMEAR 2024 INFLUENZA VACCINE (#1) 2024 HPV VACCINES (No Doses Required) Completed Insurance [facility] PLAN MEDICAID
--- OUTSIDE RECORDS SUMMARY | 2025-03-04 11:28 | XMS_ITS | Clinical Summary ---
Author Organization [facility] Address [address] [place] [address] Care Team Providers Care Supervisor [employer] Name Role Phone Unavailable Primary Care Provider Unavailabl e Source Comments [facility],non-owned Affiliates and Associated Physician Practices is amultiple site organization consisting of ambulatory clinics and hospital sitesin [place], [place], [place] and [place]. This disclosure is being madepursuant to the Care Everywhere program and may not contain all information available regarding this patient. Last updated 17.[facility] [place] Social History Tobacco Use Types Packs/Day Years Used Date Smoking Tobacco: Never Assessed Comments Unknown Sex and Gender Information Value Date Recorded Sex Assigned at Not on file Legal Sex Female 9:55 AM CONTACT CENTRE SUPERVISOR Gender Identity Not on file Sexual Orientation Not on file Plan of Treatment Health Maintenance Due Date Last Done Comments HIV SCREENING 2009 HEPATITIS C SCREENING 03/24/2012 DTAP/TDAP/TD VACCINES (1 - Tdap) 2013 HEPATITIS B VACCINE (1 of 3 - 19+ 3-dose series) 2013 HPV VACCINE (1 - 3-dose SCDM series) 2021 DEPRESSION SCREENING 03/22/2024 COVID-19 VACCINE (1 - 2024-2 6 season) 2024 INFLUENZA VACCINE (#1) 2024 ZOSTER VACCINE (1 of 2) 2044 HIB VACCINE Aged Out No longer eligi ble based on patient's age to complete this topic MENINGOCOCCAL (Group B) VACC INE SHARED DECISION-MAKING Aged Out No longer eligibl e based on patient's age to complete this topic MENINGOCOCCAL GROUPS A/C/Y/W VACCINE Aged Out No longer eligible b ased on patient's age to complete this topic PNEUMOCOCCAL VACCINE Aged Out No long er eligible based on patient's age to complete this topic Insurance [facility]
[2025-03-04 11:29] VITALS: BP 109/61; PULSE 91; RESP 20; TEMP 36.4; O2SAT 100
[2025-03-04] MEDS: SODIUM CHLORIDE 0.9% IV 1,000 ML 999 ML IV CONT (12:19)
[2025-03-04 12:25] LABS: Hematocrit 33.7 % (37.0-47.0); Hemoglobin 11.3 g/dL (12.0-15.0); Immature Granulocyte Percent A 0.5 % (0-0.5); Lymphocytes Absolute Auto 1.34 K/mm3 (0.9-3.2); Mean Corpuscular HGB Conc 33.5 g/dl (32-36); Mean Corpuscular Hemoglobin 29.5 pg (26-34); Mean Corpuscular Volume 88.0 fl (80-100); Nucleated Red Blood Cells Absolute Auto 0.000 K/mm3 (0.0-0.012); Nucleated Red Blood Cells Perc 0.0 % (0.0-0.2); Platelet Count Result 191 k/mm3 (150-375); Red Blood Count 3.83 M/mm3 (4.2-5.4); White Blood Count 9.6 K/mm3 (4.5-10.0)
[2025-03-04 12:27] LABS: Add Urine Microscopic? NO; Appearance Urine Clear (Clear); Glucose Urine UA Negative (Negative); Leukocyte Esterase Ur Negative LEU/UL (Negative); Nitrate Urine Negative (Negative); Specific Grav Ur 1.005 (1.001-1.035)
[2025-03-04 12:36] LABS: Alanine Aminotransferase 11 U/L (6-35); Albumin Level 3.8 g/dL (3.5-5.1); Alkaline Phosphatase 37 U/L (38-126); Anion Gap 5 mmol/L (4-12); Aspartate Amino Transferase 19 U/L (14-36); Bilirubin,Total 0.4 mg/dL (0.2-1.3); Blood Urea Nitrogen 16 mg/dL (7-17); Calcium 9.3 mg/dL (8.4-10.2); Carbon Dioxide 23 mmol/L (22-30); Chloride 105 mmol/L (98-107); Estimated CRCL calculation 101 ml/min; Estimated Glomerular Filt Rate > 60; Glucose 82 mg/dL (65-110); Potassium 4.4 mmol/L (3.4-5.0); Sodium 133 mmol/L (137-145); Total Protein 6.9 g/dL (6.3-8.2)
[2025-03-04 12:44] VITALS: BP 97/63; PULSE 75; RESP 13; O2SAT 100
--- NOTE | 2025-03-04 13:20 | ED.ABDPAIN ---
HPI - Abdominal Pain General Chief Complaint: Abdominal Pain Stated Complaint: ABD PAIN. 18WKS PREG Time Seen by Provider: 03/04/25 11:34 Source: patient and family Mode of arrival: ambulatory Limitations: no limitations History of Present Illness HPI narrative: 29-year-old 3 para 2 about 18 weeks of gestation presents to the ER with the complaints of lower abdominal pain which started this morning. She denies any fever or chills. No history of nausea, vomiting or diarrhea. Denies any vaginal bleeding has mild do of vaginal discharge with this nothing unusual for her. she endorses Dr. Masha lynn has her OBGYN MD elicited complaint: abdominal pain Pertinent past history: other (18 wks of gestation) Onset (ago): day(s) (1) Pain Consistency: constant Location: suprapubic Severity: moderate Quality: aching Migration to: no migration Exacerbating factors: nothing Relieving factors: nothing Associated symptoms: denies other symptoms Related Data Home Medications ?Medication ?Instructions ?Recorded ?Confirmed ?Last Taken ?Type ergocalciferol (vitamin D2) 1,250 1,250 mcg PO WEEKLY 08/07/19 01/23/22 01/22/22 21:00 History mcg (50,000 unit) capsule (Vitamin D2) vit no.95-ferrous 1 tablet PO DAILY 08/07/19 01/23/22 01/22/22 21:00 History fumarate 28 mg-folic acid 800 mcg tablet () Allergies Allergy/AdvReac Type Severity Reaction Status Date / Time No Known Allergies Allergy Verified 03/04/25 11:26 Review of Systems Review of Systems: All systems reviewed & are unremarkable except as noted in HPI and below Constitutional: Constitutional: Reports no additional constitutional complaints Eyes: Eyes: Reports no additional eye complaints ENT: Reports system reviewed and no additional complaints, except as documented Cardiovascular: Cardiovascular: Reports no additional cardiovascular complaints Respiratory: Respiratory: Reports no additional respiratory complaints Gastrointestinal: Gastrointestinal: Reports no additional gastrointestinal complaints Musculoskeletal: Musculoskeletal: Reports no additional musculoskeletal complaints [facility], [facility] Past Medical History Medical History (normal spontaneous vaginal delivery) Family History Family History Other No pertinent family history Patient denies significant medical history Social History Social History Smoking status: Never smoker Substance use: never Lack of Transportation: No Lack of Food: Never True Current Housing: I Have Housing Concerned About Future Housing: No Difficulty Paying Gas/Electric Bills: No Difficulty Paying for Meds: No Currently Unemployed: No Education: Associate Degree Difficulty w/ Childcare or Family Care: No Gender identity (if verbalized by the patient): Female Spiritual care concerns: No Exam Narrative: GENERAL: Well-appearing, well-nourished, and in no acute distress. HEAD: Normocephalic, atraumatic. EYES: PERRLA and EOMI. ENT: Nares clear, no rhinorrhea or epistaxis. Mucous membranes moist. NECK: Supple. CHEST: Clear to auscultation. No respiratory distress. HEART: Regular rate and rhythm. No murmur heard. Normal peripheral pulses. ABDOMEN: Soft, nontender, nondistended, normal active bowel sounds. Gravid abdomen EXTREMITIES: Normal range of motion. No edema. SKIN: Warm, dry, no rash. NEURO: No focal deficits. Alert and oriented x3. PSYCH: Normal mood and affect. Course Course Emergency Course: Did bed side US .live IUP ,active , pt and her were able to see . i did inform them about the lab work , was given 1 lts of NS , feeling better .Discussed with Dr Quiros , pt can be followed in the office. Vital Signs Vital signs: Vital Signs Temperature 36.4 C 03/04/25 11:29 Pulse Rate 91 03/04/25 11:29 Respiratory Rate 20 03/04/25 11:29 Blood Pressure 109/61 03/04/25 11:29 Pulse Oximetry 100 03/04/25 11:29 Oxygen Delivery Room Air 03/04/25 11:29 Temperature 36.4 C 03/04/25 11:29 Pulse Rate 75 03/04/25 12:44 Respiratory Rate 13 03/04/25 12:44 Blood Pressure 97/63 L 03/04/25 12:44 Pulse Oximetry 100 03/04/25 12:44 Oxygen Delivery Room Air 03/04/25 11:29 MDM Differential Diagnosis Differential Diagnosis: round ligament pain , uti , Ab Lab Data 03/04/25 12:18 03/04/25 12:18 Labs: Lab Results 03/04/25 Range/Units 12:18 WBC 9.6 (4.5-10.0) K/mm3 RBC 3.83 L (4.2-5.4) M/mm3 Hgb 11.3 L (12.0-15.0) g/dL Hct 33.7 L (37.0-47.0) % MCV 88.0 (80-100) fl MCH 29.5 (26-34) pg MCHC 33.5 (32-36) g/dl RDW 14.0 (11.5-14.5) % Plt Count 191 (150-375) k/mm3 MPV 9.8 (7.4-10.4) fl Immature Gran % (Auto) 0.5 (0-0.5) % Neut % (Auto) 82.0 H (45.5-73.1) % Lymph % (Auto) 14.0 L (18.3-44.2) % [place] % (Auto) 3.1 (2.6-8.5) % Eos % (Auto) 0.2 (0-4.4) % Baso % (Auto) 0.2 (0.2-1.2) % Lymph # (Auto) 1.34 (0.9-3.2) K/mm3 [place] # (Auto) 0.3 (0.1-0.6) K/mm3 Eos # (Auto) 0.0 (0-0.3) K/mm3 Baso # (Auto) 0.0 (0.0-0.1) K/mm3 Abs Immat Gran (auto) 0.05 H (0.00-0.031) K/mm3 Absolute Neuts (auto) 7.9 H (1.3-6.7) K/mm3 Absolute Nucleated RBC 0.000 (0.0-0.012) K/mm3 Nucleated RBC % 0.0 (0.0-0.2) % Sodium 133 L (137-145) mmol/L Potassium 4.4 (3.4-5.0) mmol/L Chloride 105 (98-107) mmol/L Carbon Dioxide 23 (22-30) mmol/L Anion Gap 5 (4-12) mmol/L BUN 16 (7-17) mg/dL Creatinine 0.68 L (0.7-1.0) mg/dL Estim Creat Clear Calc 101 ml/min Estimated GFR > 60 (59 - ) Glucose 82 (65-110) mg/dL Lactic Acid 0.9 (0.7-2.0) mmol/L Calcium 9.3 (8.4-10.2) mg/dL Total Bilirubin 0.4 (0.2-1.3) mg/dL AST 19 (14-36) U/L ALT 11 (6-35) U/L Alkaline Phosphatase 37 L (38-126) U/L Total Protein 6.9 (6.3-8.2) g/dL Albumin 3.8 (3.5-5.1) g/dL Urine Color Yellow (Yellow) Urine Appearance Clear (Clear) Urine pH 5.5 (5.0-9.0) Ur Specific [place] 1.005 (1.001-1.035) Urine Protein Negative (Negative) mg/dL Urine Glucose (UA) Negative (Negative) mg/dL Urine Ketones Negative (Negative) mg/dL Ur Blood (Man) Negative (Negative) Urine Nitrate Negative (Negative) Urine Bilirubin Negative (Negative) Urine Urobilinogen 0.2 (<2.0) mg/dL Leukocyte Esterase Rfl Negative (Negative) JUAN/UL Discharge Plan Discharge Clinical Impression: Abdominal pain in Qualifiers: Trimester: second trimester Qualified Code(s): O26.892 - Other specified related conditions, second trimester Patient Disposition: Home Condition: Stable Instructions: Abdominal Pain (ED) Additional Instructions: Drink more fluids , rest , can take Tylenol for pain if needed , pelvic rest Patient Language: Welsh Prescriptions: No Action ergocalciferol (vitamin D2) [Vitamin D2] 1,250 mcg (50,000 unit) Capsule 1,250 mcg PO WEEKLY PNV no.95-ferrous fumarate-FA [] 28 mg iron- 800 mcg Tablet 1 tablet PO DAILY norethindrone (contraceptive) 0.35 mg tablet 0.35 mg PO DAILY Qty: 84 3RF Rx Instructions: start in 3 weeks Follow-up/Referrals: Rosy Hammond MD [Primary Care Provider, FLIGHT TEST SUPERVISOR] Time of Disposition: 13:21
[2025-03-04 13:37] VITALS: BP 100/65; PULSE 92; RESP 15; O2SAT 99
== END 2025-03-04 13:39 | disposition home or self-care (01) ==
PROVIDERS: Emergency Provider Family Medicine; PCP Obstetrics & Gynecology Gynecology
DX: O26.892 Other specified pregnancy related conditions, second trimester (principal); R10.30 Lower abdominal pain, unspecified; Z3A.18 18 weeks gestation of pregnancy
CPT/HCPCS: 36415; 80053; 81003; 83605; 85025; 96360; 99283; J7030